=== PATIENT | male | born 1985 | race American Indian/Alaskan Native ===

== ENCOUNTER 2020-05-22 09:21 | Outpatient (CLI) | payer OTHER | END 2020-05-22 19:52 | disposition home or self-care (01) | LOC: INF 09:21 | PROVIDERS: ATTEND Internal Medicine | DX: Z23 Encounter for immunization (principal) | CPT/HCPCS: 96372 ==

== ENCOUNTER 2020-06-11 14:41 | Outpatient (CLI) | payer OTHER | END 2020-06-11 21:32 | disposition home or self-care (01) | LOC: INF 14:41 | PROVIDERS: ATTEND Internal Medicine | DX: Z23 Encounter for immunization (principal) | CPT/HCPCS: 96372 ==

== ENCOUNTER 2022-01-07 16:09 | Emergency (ER) | payer OTHER ==
[~2022-01-07] VITALS: Ht 190.5 cm; Wt 98.9 kg
[2022-01-07 16:17] VITALS: BP 138/85; TEMP 101.8
== END 2022-01-07 18:09 | disposition home or self-care (01) ==
LOC: ED 16:09
DX: J10.1 Influenza due to other identified influenza virus with other respiratory manifestations (principal); Z20.822 Contact with and (suspected) exposure to COVID-19
CPT/HCPCS: 87502; 87635; 87651; 99283; U0003